=== PATIENT | female | born 2000 | race African-American/Black ===

== ENCOUNTER 2022-12-21 13:56 | Emergency (ER) | payer OTHER ==
[2022-12-21 14:15] VITALS: BP 116/98
[2022-12-21 15:21] LABS: B. PARAPERTUSSIS- RESP PCR PAN NOT DETECTED; B. PERTUSSIS- RESP PCR PANEL NOT DETECTED; C. PNEUMONIAE- RESP PCR PANEL NOT DETECTED; CORONAVIRUS 229E-RESP PCR NOT DETECTED; CORONAVIRUS HKU1-RESP PCR NOT DETECTED; CORONAVIRUS NL63-RESP PCR NOT DETECTED; CORONAVIRUS OC43-RESP PCR NOT DETECTED; HUMAN METAPNEUMOVIRUS NOT DETECTED; INFLUENZA A- RESP PCR PANEL NOT DETECTED; INFLUENZA B - RESP PCR PANEL NOT DETECTED; M. PNEUMONIAE- RESP PCR PANEL NOT DETECTED; PARAINFLUENZA VIRUS 1 NOT DETECTED; PARAINFLUENZA VIRUS 2 NOT DETECTED; PARAINFLUENZA VIRUS 3 NOT DETECTED; PARAINFLUENZA VIRUS 4 NOT DETECTED; RHINOVIRUS/ENTEROVIRUS NOT DETECTED; RSV- RESP PCR PANEL NOT DETECTED; SARS-CoV-2 -RESP PCR PANEL NOT DETECTED
--- NOTE | 2022-12-21 16:13 | ED Physician Documentation ---
History of Present Illness - Stated complaint Stated Complaint: COUGH,SHRESTHA,SOA - Chief complaint Chief Complaint: General - Additonal information Additional information: 22-year-old female presents emergency department for evaluation of white coating on her tongue that began after she started taking Bactrim for UTI. Has also developed a cough and headache over the last 2 days. Patient began taking Bactrim 3 days ago for UTI found when she had a UTI and hematuria at a local walk-in clinic Review of Systems Constitutional: denies: Fever, Chills Nose: reports: Other (Thrush) Cardiac: reports: Reviewed and negative Respiratory: reports: Cough GI: reports: Reviewed and negative : reports: Reviewed and negative Skin: reports: Reviewed and negative Neurologic: reports: Headache PD PAST MEDICAL HISTORY - Present Medications Home Medications: Ambulatory Orders Medication Instructions Recorded Confirmed Ergocalciferol [Vitamin D2] 1 cap PO 11/10/21 Sertraline [Zoloft] 50 mg PO DAILY 11/10/21 11/10/21 Ibuprofen [Motrin] 600 mg PO Q6H PRN #20 tab 11/11/21 Oxycodone HCl/Acetaminophen 1 - 2 each PO Q6H PRN #14 tablet 11/11/21 [Percocet 5-325 mg Tablet] clindamycin HCL [Clindamycin HCl] 300 mg PO QID #27 cap 11/11/21 Fluconazole [Diflucan] 1 tablet PO ONCE 2 Days #2 tablet 12/21/22 Nystatin [Mycostatin] 5 ml PO BID 3 Days #6 ea 12/21/22 - Allergies Allergies/Adverse Reactions: Allergies Allergy/AdvReac Type Severity Reaction Status Date / Time No Known Drug Allergies Allergy Verified 12/21/22 14:15 PD ED PE NORMAL - General General: Alert and oriented X 3, No acute distress, Well developed/nourished (Obese) - HEENT HEENT: Atraumatic - Neck Neck: Supple, no meningeal sign, No adenopathy - Cardiac Cardiac: RRR, No murmur - Respiratory Respiratory: No respiratory distress, Clear bilaterally - Abdomen Abdomen: Normal bowel sounds, Soft - Neuro Neuro: Alert and oriented X 3, cook taco 2-12 intact Eye Opening: Spontaneous Motor: Obeys Commands Verbal: Oriented GCS Score: 15 Results - Vitals Vitals: Vital Signs - 24 hr 12/21/22 14:07 Temperature 36.4 C L Heart Rate 96 Respiratory 16 Rate Blood Pressure 116/98 H O2 Saturation 100 Oxygen O2 Source Room air - Labs Labs: Laboratory Tests 12/21/22 14:18 Nasal Adenovirus (PCR) NOT DETECTED Nasal B. parapertussis DNA (PCR) NOT DETECTED Nasal Coronavir 229E PCR NOT DETECTED Nasal Coronavir HKU1 PCR NOT DETECTED Nasal Coronavir NL63 PCR NOT DETECTED Nasal Coronavir OC43 PCR NOT DETECTED Nasal Enterovir/Rhinovir PCR NOT DETECTED Nasal Influenza B PCR NOT DETECTED Nasal Influenza A PCR NOT DETECTED Nasal Parainfluen 1 PCR NOT DETECTED Nasal Parainfluen 2 PCR NOT DETECTED Nasal Parainfluen 3 PCR NOT DETECTED Nasal Parainfluen 4 PCR NOT DETECTED Nasal RSV (PCR) NOT DETECTED Nasal B.pertussis DNA PCR NOT DETECTED Nasal C.pneumoniae (PCR) NOT DETECTED [place] Human Metapneumo PCR NOT DETECTED Nasal M.pneumoniae (PCR) NOT DETECTED Nasal SARS-CoV-2 (PCR) NOT DETECTED PD Medical Decision Making - ED course Complexity details: reviewed results, d/w patient ED course: 22-year-old female presents emergency department for concerns of white coating on her tongue that began yesterday. She is on day 3 of Bactrim that was prescribed for UTI. She also endorses a headache and cough. On exam she appears alert and remarkably well. No worrisome vital sign abnormality. Cardiopulmonary auscultation was unremarkable. No focal neurodeficits. Clinically she does have thrush in her tongue and posterior oropharynx. Likely secondary to the antibiotic use. She will be prescribed fluconazole tablets as well as nystatin. We did do a respiratory PCR panel which was negative today. I deferred chest x-ray imaging given the unremarkable cardiopulmonary auscultation and short duration of cough which I believed to likely be viral despite the negative testing today. Patient does not have any clinical manifestations to suggest meningitis or encephalitis Recommended Tylenol and ibuprofen [id number] for body aches and discomfort. The usual emergent return precautions were discussed worsening symptoms. Departure - Departure Disposition: 01 Home, Self Care Clinical Impression: Thrush, oral Cough Qualifiers: Cough type: acute Qualified Code(s): R05.1 - Acute cough Condition: Stable Record reviewed to determine appropriate education?: Yes Prescriptions: Fluconazole [Diflucan] 1 tablet PO ONCE 2 Days #2 tablet Nystatin [Mycostatin] 5 ml PO BID 3 Days #6 ea Comments: You have developed a white coating on your tongue. This is called thrush. It is an overgrowth of yeast typically after starting antibiotics. I have sent a prescription for fluconazole and oral antifungal tablet. You will take that today and then again 24 hours after you finish your Bactrim which was started for urinary tract infection. I have also prescribed a nystatin solution. You can swish and spit this out twice daily for the next several days. With these medications I would expect improvement in your thrush over the next several days. return to the ER if you develop any worsening symptoms, fevers, have difficulty swallowing talking or breathing.
== END 2022-12-21 16:25 | disposition home or self-care (01) ==
LOC: ED 13:56
DX: B37.0 Candidal stomatitis (principal); Z20.822 Contact with and (suspected) exposure to COVID-19
CPT/HCPCS: 87633; 99283